=== PATIENT | male | born 1965 | race Caucasian/White ===

== ENCOUNTER 2021-12-21 18:34 | Emergency (ER) | payer OTHER ==
--- OUTSIDE RECORDS SUMMARY | 2021-12-21 18:37 | XMS REPORT | Continuity of Care Document ---
:1965 Author Organization [facility] t Address [address] [place] [address] Care Team Providers Name Role Phone Patrick DOSS Attending Clinician Problems This patient has no known problems. Allergies, Adverse Reactions, Alerts This patient has no known allergies or adverse reactions. Medications This patient has no known medications. Procedures This patient has no known procedures. Encounters Start End Encounter Admission Attending Care Care Encounter Source Date/Time Date/Time Type Type Clinicians Facility Department ID 2020-03-07 2020-03-07 Telephone MALLIKA Nguyen [id number] 00:00:00 00:00:00 [facility] [employer] [id number] Clear [id number] [place] [id number] Medical [address] Results This patient has no known results.
[2021-12-21] MEDS ORDERED: NA CHLORIDE 0.9% 1,000 ML ONE (19:00)
[2021-12-21] MEDS ORDERED: MORPHINE 4 MG/ML SYR ONE ×2 (19:00→19:58)
[2021-12-21 19:07] LABS: Absolute Lymphocytes (CBC) 1.5 K/uL (0.7-4.9); Hematocrit 40.7 % (39.6-49.0); Lymphocytes % 14.5 % (15.3-44.8); MPV 7.1 fL (7.6-11.3); RBC Red Blood Cell Count 4.71 M/uL (4.33-5.43)
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
--- NOTE | 2021-12-21 19:50 | RAD REPORT ---
EXAM DESCRIPTION: Lou Single View12/21/2021 6:57 pm CLINICAL HISTORY: Shortness of breath COMPARISON: none FINDINGS: The lungs appear clear of acute infiltrate. The heart is normal size IMPRESSION: No acute abnormalities displayed
[2021-12-21 19:53] LABS: Potassium 3.8 mmol/L (3.5-5.1)
--- NOTE | 2021-12-21 20:44 | RAD REPORT ---
EXAM DESCRIPTION: RAD - Humerus Left - 12/21/2021 8:31 pm CLINICAL HISTORY: Left arm pain FINDINGS: No fracture is seen. Calcific density adjacent to the humeral head may indicate calcific tendinitis
--- NOTE | 2021-12-21 20:52 | RAD REPORT ---
EXAM DESCRIPTION: RAD - Clavicle Left - 12/21/2021 8:31 pm CLINICAL HISTORY: Left shoulder pain FINDINGS: Mildly displaced fracture mid to distal left clavicle. No dislocation
[2021-12-21] MEDS ORDERED: HYDROCODONE/APAP 10/325 TAB ONE (21:10)
--- NOTE | 2021-12-21 21:10 | EDPHYS ---
Physician Documentation [facility] Name: Chris Recio Age: 56 yrs Sex: Male : 1965 Arrival Date: 12/21/2021 Time: 18:37 Bed 4 Private MD: ED Physician Rommel Salvador HPI: 12/21 18:55 This 56 yrs old Male presents to ER via EMS with complaints of Fall from Horse. cp 18:55 Details of fall: The patient fell from a height, horse, and struck dirt, a cp grass-covered surface. Onset: The symptoms/episode began/occurred just prior to arrival. Associated injuries: The patient sustained injury to the chest, specifically the left side of chest, pain with breathing, pain with movement. Severity of symptoms: in the emergency department the symptoms have improved, mildly. Historical: - Allergies: 18:44 No Known Allergies; jh6 - Immunization history:: Adult Immunizations up to date. - Social history:: Smoking status: Patient denies any tobacco usage or history of. ROS: 19:00 Constitutional: Negative for body aches, chills, fever, poor PO intake. cp 19:00 Cardiovascular: Positive for chest pain, of the left side and left lateral chest, cp Negative for edema, palpitations. 19:00 Respiratory: Negative for cough, shortness of breath, wheezing. 19:00 MS/extremity: Negative for decreased range of motion, deformity. 19:00 Neuro: Negative for altered mental status, dizziness, headache, loss of consciousness, syncope, weakness. 19:00 All other systems are negative. Exam: 18:52 ECG was reviewed by the Attending Physician. cp 19:05 Constitutional: The patient appears in no acute distress, alert, awake, cp non-diaphoretic, non-toxic, well developed, well nourished, obese. 19:05 Head/Face: Normocephalic, atraumatic. cp 19:05 Eyes: Periorbital structures: appear normal, Pupils: equal, round, and reactive to light and accomodation, Extraocular movements: intact throughout, Conjunctiva: normal, no exudate, no injection, Sclera: no appreciated abnormality, Lids and lashes: appear normal, bilaterally. 19:05 ENT: External ear(s): are unremarkable, Nose: is normal, Mouth: Lips: moist, Oral mucosa: moist, Posterior pharynx: Airway: no evidence of obstruction, patent. 19:05 Neck: C-spine: C-collar placed RACE RELATIONS PROFESSOR, Back board RACE RELATIONS PROFESSOR 19:05 Chest/axilla: Inspection: normal, Palpation: crepitus, is not appreciated, tenderness, that is severe, of the left clavicle, anterior aspect of left upper chest, left lateral anterior chest and left lateral posterior chest. 19:05 Cardiovascular: Rate: normal, Rhythm: regular, Pulses: Pulses are 2+ in right radial artery and left radial artery. Edema: is not appreciated, JVD: is not appreciated. 19:05 Respiratory: the patient does not display signs of respiratory distress, Respirations: normal, no use of accessory muscles, no retractions, labored breathing, is not present, Breath sounds: are clear throughout, no decreased breath sounds, no stridor, no wheezing. 19:05 Abdomen/GI: Inspection: obese Bowel sounds: active, all quadrants, Palpation: abdomen is soft and non-tender, in all quadrants, rebound tenderness, is not appreciated, voluntary guarding, is not appreciated, involuntary guarding, is not appreciated. 19:05 Back: vertebral tenderness, is not appreciated. 19:05 Musculoskeletal/extremity: Exam is negative for decreased range of motion, deformity. 19:05 Neuro: Orientation: to person, place \T\ time. Mentation: is normal, Motor: moves all fours, strength is normal, Sensation: no obvious gross deficits. Vital Signs: 18:41 BP 142 / 112; Pulse 95; Resp 20; Temp 97.9(O); Pulse Ox 96% on R/A; Weight 113.4 kg; [facility] Height 5 ft. 6 in. (167.64 cm); Pain 9/10; 19:31 BP 133 / 92; Pulse 95; Resp 17; Pulse Ox 99% on R/A; sm5 20:00 BP 141 / 86; Pulse 98; Resp 19; Pulse Ox 97% on R/A; sm5 21:27 BP 145 / 79; Pulse 99; Resp 20; Pulse Ox 98% on R/A; sm5 18:41 Body Mass Index 40.35 (113.40 kg, 167.64 cm) [facility] MDM: 18:41 Patient medically screened. [facility] 19:00 Differential diagnosis: closed head injury, contusion, fracture, laceration, multiple cp trauma. 21:08 Data reviewed: vital signs, nurses notes, lab test result(s), radiologic studies, CT cp scan, plain films. 21:08 Test interpretation: by ED physician or midlevel provider: plain radiologic studies. cp Counseling: I had a detailed discussion with the patient and/or guardian regarding: the historical points, exam findings, and any diagnostic results supporting the discharge/admit diagnosis, lab results, radiology results, the need for outpatient follow up, a orthopedic surgeon, to return to the emergency department if symptoms worsen or persist or if there are any questions or concerns that arise at home. Response to treatment: the patient's symptoms have markedly improved after treatment, VSS. Pain improved with meds. Discussed radiology results showing nondisplaced left clavicle fracture. Left arm placed in shoulder sling and will discharge patient to home for continued monitoring. 12/21 18:44 Order name: Basic Metabolic Panel; Complete Time: 20:59 12/21 20:59 Interpretation: Normal except: CL 111; GLUC 158; BUN 23; GFR 83; CA 8.1. 12/21 18:44 Order name: CBC with Diff; Complete Time: 19:53 12/21 19:53 Interpretation: Normal except: MPV 7.1; AMALIA% 77.6; LYM% 14.5; NEUT A 8.2. 12/21 18:44 Order name: CT Traumagram (Head C Spine CAP W Con); Complete Time: 19:53 12/21 18:44 Order name: XRAY Chest (1 view); Complete Time: 19:53 12/21 19:56 Order name: XRAY Humerus LEFT; Complete Time: 20:59 12/21 20:59 Interpretation: Report reviewed. 12/21 18:44 Order name: Labs collected and sent; Complete Time: 19:01 cp 12/21 19:56 Order name: XRAY Clavicle LEFT; Complete Time: 20:59 12/21 20:59 Interpretation: Report reviewed. 12/21 20:39 Order name: Sling; Complete Time: 21:17 cp EC:52 Rate is 96 beats/min. Rhythm is regular. VT interval is normal. QRS interval is normal. cp QT interval is normal. T waves are Inverted in lead aVR. Interpreted by me. Reviewed by me. Administered Medications: 19:01 Drug: NS 0.9% 1000 ml Route: IV; Rate: 1 bolus; Site: right antecubital; ww 20:02 Follow up: IV Status: Completed infusion; IV Intake: 1000ml 5 19:01 Drug: morphine 4 mg Route: IVP; Site: right antecubital; ww 21:54 Follow up: Response: Pain is decreased 5 19:58 Drug: morphine 4 mg Route: IVP; Site: right antecubital; 5 21:53 Follow up: Response: Pain is decreased 5 21:17 Drug: [place] (HYDROcodone-acetaminophen) 10 mg-325 mg 1 tabs Route: PO; 5 21:53 Follow up: Response: No adverse reaction; No change in condition 5 21:51 Drug: Ondansetron 4 mg Route: PO; 5 21:53 Follow up: Response: Medication administered at discharge. [facility] Disposition: 12/22 04:44 Co-signature as Attending Physician, Rommel Salvador MD. 7 Disposition Summary: 12/21/21 21:09 Discharge Ordered Location: Home cp Problem: new cp Symptoms: have improved cp Condition: Stable cp Diagnosis - Fracture of shaft of clavicle - left cp - Animal-rider injured by fall from or being thrown from horse in noncollision cp accident, initial encounter Followup: cp - With: Frahan Albrecht MD - When: 2 - 3 days - Reason: left clavicle fracture Discharge Instructions: - Discharge Summary Sheet cp - Clavicle Fracture cp Forms: - Medication Reconciliation Form cp - Thank You Letter cp - Antibiotic Education cp - Prescription Opioid Use cp Prescriptions: - Ibuprofen 800 mg Oral Tablet - take 1 tablet by ORAL route every 8 hours As needed take with food; 30 tablet; cp Refills: 0, Product Selection Permitted - Tylenol-Codeine #3 300 mg-30 mg Oral - take 2 tablet by ORAL route every 8-10 hours; 20 tablet; Refills: 0, Product cp Selection Permitted - Cyclobenzaprine 10 mg Oral Tablet - take 1 tablet by ORAL route every 8 hours As needed; 20 tablet; Refills: 0, cp Product Selection Permitted Signatures: Dispatcher [employer] Ravi Rosales MD MD cha Page, Corey, PA PA Rommle Wilkins MD MD [facility] Neli Johnson RN RN jh6 Aminata Stafford RN RN sm5 Vandana Ochoa RN RN ww Corrections: (The following items were deleted from the chart) 15:54 15:52 This 56 yrs old Male presents to ER via EMS with complaints of Fall from Horse. cpcp
--- NOTE | 2021-12-21 21:10 | ER ---
Nurse's Notes [facility] Name: Chris Recio Age: 56 yrs Sex: Male : 1965 Arrival Date: 12/21/2021 Time: 18:37 Bed 4 Private MD: Diagnosis: Fracture of shaft of clavicle-left;Animal-rider injured by fall from or being thrown from horse in noncollision accident, initial encounter Presentation: 12/21 18:41 Chief complaint: EMS states: pt fell from horse, landing on l shoulder and back. Pt c/o jh6 shoulder and scapular pain. Arrived BB/CC iv to rt hand meds given captain room service. Pt reported -loc and -sob at this time. Coronavirus screen: Vaccine status: Patient reports receiving the 2nd dose of the covid vaccine. Ebola Screen: Patient negative for fever greater than or equal to 101.5 degrees Fahrenheit, and additional compatible Ebola Virus Disease symptoms Patient denies exposure to infectious person. Initial Sepsis Screen: Does the patient meet any 2 criteria? No. Patient's initial sepsis screen is negative. Does the patient have a suspected source of infection? No. Patient's initial sepsis screen is negative. Risk Assessment: Do you want to hurt yourself or someone else? Patient reports no desire to harm self or others. Onset of symptoms was December 21, 2021. 18:41 Method Of Arrival: EMS: [facility] 18:41 Acuity: RAI 2 [facility] 18:45 Activity prior to arrival: 18g rt hand fentanyl 50mcg, Zofran 4mg, ketamine 20mg. [facility] Mechanism of Injury: Fall horse. Historical: - Allergies: 18:44 No Known Allergies; [facility] - Immunization history:: Adult Immunizations up to date. - Social history:: Smoking status: Patient denies any tobacco usage or history of. Screenin:00 Abuse screen: Denies threats or abuse. Denies injuries from another. Nutritional sm5 screening: No deficits noted. Tuberculosis screening: No symptoms or risk factors identified. Fall Risk IV access (20 points). Total Saavedra Fall Scale indicates No Risk (0-24 pts). Assessment: 19:59 General: Appears uncomfortable, Behavior is cooperative, appropriate for age. Pain: sm5 Complains of pain in left supraclavicular area and anterior aspect of left shoulder. Neuro: No deficits noted. Level of Consciousness is awake, alert, obeys commands, Oriented to person, place, time, situation. Cardiovascular: No deficits noted. Capillary refill < 3 seconds Patient's skin is warm and dry. Respiratory: No deficits noted. Airway is patent Trachea midline Respiratory effort is even, unlabored. Musculoskeletal: Circulation, motion, and sensation intact. Capillary refill < 3 seconds. 21:07 Reassessment: No changes from previously documented assessment. Patient and/or family [facility] updated on plan of care and expected duration. Pain level reassessed. 21:51 Reassessment: No changes from previously documented assessment. [facility] Vital Signs: 18:41 BP 142 / 112; Pulse 95; Resp 20; Temp 97.9(O); Pulse Ox 96% on R/A; Weight 113.4 kg; [facility] Height 5 ft. 6 in. (167.64 cm); Pain 9/10; 19:31 BP 133 / 92; Pulse 95; Resp 17; Pulse Ox 99% on R/A; sm5 20:00 BP 141 / 86; Pulse 98; Resp 19; Pulse Ox 97% on R/A; sm5 21:27 BP 145 / 79; Pulse 99; Resp 20; Pulse Ox 98% on R/A; sm5 18:41 Body Mass Index 40.35 (113.40 kg, 167.64 cm) [facility] ED Course: 18:37 Patient arrived in ED. eb 18:40 Ravi Bullock PA is PHCP. cp 18:40 Ravi Chan MD is Attending Physician. cp 18:44 Triage completed. [facility] 18:59 XRAY Chest (1 view) In Process Unspecified. EDMS 19:00 Inserted saline lock: 18 gauge in right antecubital area, using aseptic technique. 5 Blood collected. 19:19 CT Traumagram (Head C Spine CAP W Con) In Process Unspecified. EDMS 19:23 Aminata Stafford, CAMILLE is Primary Nurse. 5 20:01 Maintain EMS IV. Dressing intact. Good blood return noted. Site clean \T\ dry. Gauge \T\ sm 5 site: 22G R hand. 20:01 Patient has correct armband on for positive identification. Placed in gown. Bed in low sm5 position. Call light in reach. Side rails up X2. overhead cleaner maintainer on. Pulse ox on. NIBP on. 20:01 Arm band placed on right wrist. sm5 20:33 XRAY Humerus LEFT In Process Unspecified. EDMS 20:33 XRAY Clavicle LEFT In Process Unspecified. EDMS 21:00 Rommel Salvador MD is Attending Physician. cp 21:09 Farhan Albrecht MD is Referral Physician. cp 21:15 Sling applied to left arm. sm5 21:52 No provider procedures requiring assistance completed. IV discontinued, intact, sm5 bleeding controlled, No redness/swelling at site. Pressure dressing applied. Administered Medications: 19:01 Drug: NS 0.9% 1000 ml Route: IV; Rate: 1 bolus; Site: right antecubital; ww 20:02 Follow up: IV Status: Completed infusion; IV Intake: 1000ml sm5 19:01 Drug: morphine 4 mg Route: IVP; Site: right antecubital; ww 21:54 Follow up: Response: Pain is decreased sm5 19:58 Drug: morphine 4 mg Route: IVP; Site: right antecubital; sm5 21:53 Follow up: Response: Pain is decreased sm5 21:17 Drug: [place] (HYDROcodone-acetaminophen) 10 mg-325 mg 1 tabs Route: PO; sm5 21:53 Follow up: Response: No adverse reaction; No change in condition sm5 21:51 Drug: Ondansetron 4 mg Route: PO; sm5 21:53 Follow up: Response: Medication administered at discharge. sm5 Intake: 20:02 IV: 1000ml; Total: 1000ml. 5 Outcome: 21:09 Discharge ordered by . cp 21:53 Discharged to home via wheelchair, with significant other. sm5 21:53 Condition: stable 21:53 Discharge instructions given to patient, significant other, Instructed on discharge instructions, follow up and referral plans. no drinking with medication, medication usage, Demonstrated understanding of instructions, follow-up care, medications, Prescriptions given X 3. 21:54 Patient left the ED. 5 Signatures: Dispatcher [employer] EDSD Ravi Bullock PA PA cp Botello, Elizabeth eb Hastedt, Jennifer, RN RN 6 Aminata Stafford RN RN 5 Vandana Ochoa RN RN
[2021-12-21] MEDS ORDERED: ONDANSETRON 4 MG (ODT) TAB ONE (21:39)
[2021-12-21 22:37] VITALS: TEMP 97.9
[2021-12-21 22:40] VITALS: BP 145/79; O2SAT 98
--- NOTE | 2021-12-22 09:27 | EKG ---
Test Date: 2021-12-21 Test Time: 18:46:55 Wildlife Technician: JOSH MEASUREMENT RESULTS: Intervals: Rate: 96 OH: 174 QRSD: 74 QT: 352 QTc: 444 [place]: P: 57 OH: 174 QRS: 27 T: 39 INTERPRETIVE STATEMENTS: Normal sinus rhythm Normal ECG No previous ECG available for comparison Electronically Signed On 12-22-21 09:25:45 CDT by Ta Hernandez
== END 2021-12-21 21:54 | disposition home or self-care (01) ==
LOC: ER 18:34
DX: S42.022A Displaced fracture of shaft of left clavicle, initial encounter for closed fracture (principal); V80.010A Animal-rider injured by fall from or being thrown from horse in noncollision accident, initial encounter
CPT/HCPCS: 96361; 93005; 85025; 80048; 36415; 82565; 70450; 72125; 71260; 74177; 71045; 73060; 73000; 96374; 99285; Q9967; J7030